=== PATIENT | male | born 1945 | race African-American/Black ===

== ENCOUNTER → 2017-01-17 09:55 | Outpatient (CLI) | payer MEDICARE, MEDICAID ==
[2015-05-20 08:42] VITALS: BMI 25.6
[~2017-01-17 09:55] MED LIST: FLAGYL 500500 MG/100 IV; LEVAQUIN500 MG PO; MUCINEX DM ER1 EAC1 PO; NICODERM C1 PATCH .1 TRANSDERM; SINGULAIR10 MG PO; SPIRIVA18 MCG INH; SYMBICORT 16010.2 GM INH
== END | disposition home or self-care (01) ==
LOC: D.RT 09:55
DX: J84.9 Interstitial pulmonary disease, unspecified (principal)

== ENCOUNTER 2018-03-28 18:08 | Emergency (ER) | payer MEDICARE, MEDICAID ==
[~2018-03-28] VITALS: Ht 157.5 cm; Wt 72.7 kg
[2018-03-28 18:42] VITALS: Ht 157.5 cm; Wt 72.7 kg
[2018-03-28] MEDS ORDERED: [UNRECOGNIZED DRUG - REMARK] (18:43)
[2018-03-28 19:26] LABS: BASOPHILS 0.3 % (0-2); EOSINOPHILS 0.6 % (0-7); HEMATOCRIT 50.4 % (42.0-54.0); HEMOGLOBIN 15.9 g/dL (13.5-17.5); IMMATURE GRANULOCYTES 0.3 % (0-5); LYMPHOCYTES 15.6 % (15-50); MCH 29.6 pg (26.0-34.0); MCHC 31.5 g/dL (31.0-37.0); MCV 93.9 fL (80.0-100.0); MONOCYTES 7.2 % (2-11); PLATELET COUNT 172 10x3/uL (130-400); RBC 5.37 10x6/uL (4.20-6.10); RDW 14.1 % (11.5-14.5); WBC 6.4 10x3/uL (4.8-10.8)
[2018-03-28 19:57] LABS: ALBUMIN 3.6 g/dL (3.4-5.0); ANION GAP 13.1 mmol/L (8-16); BILIRUBIN - TOTAL 0.44 mg/dL (0.2-1.3); CALCIUM 10.1 mg/dL (8.5-10.1); CARBON DIOXIDE 29.1 mmol/L (21.0-32.0); CREATININE - SERUM 1.8 mg/dL (0.6-1.3); POTASSIUM - SERUM 4.2 mmol/L (3.5-5.1); PROTEIN - SERUM 8.4 g/dL (6.4-8.2)
[2018-03-28 20:07] LABS: PRO BNP 23 pg/mL (0-125)
[2018-03-28 20:12] LABS: TROPONIN-I < 0.017 ng/mL (0.000-0.060)
[2018-03-28 22:18] VITALS: BP 146/91
== END 2018-03-28 22:19 | disposition home or self-care (01) ==
LOC: D.ER 18:08
PROVIDERS: Family Medicine
DX: J44.9 Chronic obstructive pulmonary disease, unspecified (principal); R42 Dizziness and giddiness; F17.200 Nicotine dependence, unspecified, uncomplicated

== ENCOUNTER → 2018-11-07 09:15 | Outpatient (CLI) | payer MEDICARE, MEDICAID ==
[2018-03-28 18:42] VITALS: BMI 29.3
[~2018-11-07 09:15] MED LIST changes: +[UNRECOGNIZED DRUG - REMARK]
== END | disposition home or self-care (01) ==
LOC: D.RT 09:15
PROVIDERS: ATTEND Internal Medicine Pulmonary Disease
DX: J44.9 Chronic obstructive pulmonary disease, unspecified (principal)